=== PATIENT | female | born 1995 | race Caucasian/White ===

== ENCOUNTER 2018-02-09 11:55 | Emergency (ER) | payer MEDICAID ==
[~2018-02-09] VITALS: Ht 157.5 cm; Wt 73.8 kg
[~2018-02-09 11:55] MED LIST: CEPH-571 PO; CLIN-79 PO; CLIN-80 PO; HYDR-565 PO; IBUP-1985 PO; OMEP20CA4 PO; ONDA4TAB6 PO
[2018-02-09 12:50] LABS: BASOPHILS % (AUTO) 0.3 % (0-1); EOSINOPHILS # (AUTO) 0.1 X10'3 (0-0.9); EOSINOPHILS % (AUTO) 1.6 % (0-6); HEMATOCRIT 41.5 % (35.0-45.0); HEMOGLOBIN 14.3 g/dl (12.0-16.0); LYMPHOCYTES # (AUTO) 1.6 X10'3 (1.1-4.8); LYMPHOCYTES % (AUTO) 27.6 % (21-51); MEAN CORPUSCULAR HEMOGLOBIN 31.1 PG (27.0-31.0); MEAN CORPUSCULAR HGB CONC 34.5 % (33.0-36.5); MEAN CORPUSCULAR VOLUME 90.2 FL (78-98); MEAN PLATELET VOLUME 7.4 FL (7.4-10.4); MONOCYTES # (AUTO) 0.5 X10'3 (0-0.9); NEUTROPHILS # (AUTO) 3.6 X10'3 (1.8-7.7); NEUTROPHILS % (AUTO) 61.5 % (42-75); PLATELET COUNT 271 X10'3 (140-440); RED BLOOD COUNT 4.61 X10'6 (4.20-5.60); RED CELL DISTRIBUTION WIDTH 12.1 % (11.5-14.5); WHITE BLOOD COUNT 5.9 X10'3 (4.5-11.0)
[2018-02-09 13:03] LABS: D-DIMER 0.56 MG/L FEU (0-0.50)
[2018-02-09 13:04] LABS: ALANINE AMINOTRANSFERASE 44 U/L (12-78); ALBUMIN 3.8 G/DL (3.4-5.0); ALKALINE PHOSPHATASE 101 IU/L (46-116); ANION GAP 9 (8-16); ASPARTATE AMINO TRANSFERASE 35 U/L (10-37); BILIRUBIN,TOTAL 0.1 MG/DL (0.1-1.0); BLOOD UREA NITROGEN 10 MG/DL (7-18); BUN/CREATININE RATIO 12.8 (6.6-38.0); CALCIUM 9.2 MG/DL (8.5-10.1); CHLORIDE 104 MMOL/L (99-107); CREATININE 0.78 MG/DL (0.40-0.90); GLUCOSE 100 MG/DL (70-104); POTASSIUM 3.9 MMOL/L (3.5-5.1); SODIUM 141 MMOL/L (135-145); TOTAL CARBON DIOXIDE 28.2 MMOL/L (24-32); TOTAL PROTEIN 7.7 G/DL (6.4-8.2); eGFR > 90 ML/MIN
[2018-02-09 15:05] LABS: URINE HCG NEGATIVE (NEG)
[2018-02-09 15:21] LABS: URINE AMPHETAMINE SCREEN NEGATIVE (Neg); URINE BARBITUATE SCREEN NEGATIVE (Neg); URINE BENZODIAZEPINES SCREEN NEGATIVE (Neg); URINE CANNABINOID SCREEN NEGATIVE (Neg); URINE COCAINE SCREEN NEGATIVE (Neg); URINE METHADONE SCREEN NEGATIVE (Neg); URINE OPIATE SCREEN NEGATIVE (Neg); URINE PHENCYCLIDINE SCREEN NEGATIVE (Neg)
[2018-02-09] MEDS ORDERED: iohexol 350MG/ML 100ml bottle IV ONE (15:24)
[2018-02-09] MEDS ORDERED: IBUP-1984 PO (16:29)
[2018-02-09 16:30] VITALS: BP 97/76
[2018-02-09] MEDS ORDERED: GUAI10SY2 PO (16:30)
[2018-02-09] MEDS ORDERED: AZI25OT PO (16:41)
== END 2018-02-09 17:37 | disposition home or self-care (01) ==
LOC: ER 11:56
DX: J06.9 Acute upper respiratory infection, unspecified (principal); R09.1 Pleurisy; F17.200 Nicotine dependence, unspecified, uncomplicated; F12.10 Cannabis abuse, uncomplicated; Z88.2 Allergy status to sulfonamides; Z79.899 Other long term (current) drug therapy; Z56.0 Unemployment, unspecified
CPT/HCPCS: 36415; 71045; 71275; 80053; 80305; 81025; 85025; 85379; 99285; J7030; Q9967

== ENCOUNTER 2018-08-09 07:53 | Emergency (ER) | payer MEDICAID ==
[~2018-08-09] VITALS: Ht 154.9 cm; Wt 59.1 kg
[~2018-08-09 07:53] MED LIST changes: -CLIN-79 PO; -CLIN-80 PO; +CLIN150C8 PO; +CLIN300C85 PO; +HYDR-4353 PO; -HYDR-565 PO
[2018-08-09] MEDS ORDERED: acetaminophen 325mg tablet PO ONE (08:40)
[2018-08-09] MEDS ORDERED: normal saline 1000ML IV soln IV ONE (08:40)
[2018-08-09] MEDS ORDERED: diphenhydrAMINE 50 mg/ml inj IV ONE (08:40)
[2018-08-09] MEDS ORDERED: LIDOcaine 1% w/epiNEPHrine 1:200,000 30ml vial IJ ONE (09:20)
[2018-08-09] MEDS ORDERED: LORazepam 2 mg/ml vial IV ONE (09:25)
[2018-08-09 09:35] LABS: BASOPHILS % (AUTO) 0.3 % (0-1); EOSINOPHILS # (AUTO) 0.4 X10'3 (0-0.9); EOSINOPHILS % (AUTO) 2.5 % (0-6); HEMATOCRIT 42.3 % (35.0-45.0); HEMOGLOBIN 14.1 g/dl (12.0-16.0); LYMPHOCYTES # (AUTO) 0.6 X10'3 (1.1-4.8); LYMPHOCYTES % (AUTO) 4.2 % (21-51); MEAN CORPUSCULAR HEMOGLOBIN 29.8 PG (27.0-31.0); MEAN CORPUSCULAR HGB CONC 33.3 % (33.0-36.5); MEAN CORPUSCULAR VOLUME 89.4 FL (78-98); MEAN PLATELET VOLUME 7.6 FL (7.4-10.4); MONOCYTES # (AUTO) 0.3 X10'3 (0-0.9); MONOCYTES % (AUTO) 1.8 % (2-12); NEUTROPHILS # (AUTO) 13.2 X10'3 (1.8-7.7); NEUTROPHILS % (AUTO) 91.2 % (42-75); PLATELET COUNT 322 X10'3 (140-440); RED BLOOD COUNT 4.73 X10'6 (4.20-5.60); WHITE BLOOD COUNT 14.5 X10'3 (4.5-11.0)
[2018-08-09 09:48] LABS: ALANINE AMINOTRANSFERASE 31 U/L (12-78); ALBUMIN 3.6 G/DL (3.4-5.0); ALBUMIN/GLOBULIN RATIO 0.9 (1.1-1.5); ALKALINE PHOSPHATASE 95 IU/L (46-116); ANION GAP 13 (8-16); ASPARTATE AMINO TRANSFERASE 20 U/L (10-37); BILIRUBIN,TOTAL 0.5 MG/DL (0.1-1.0); BLOOD UREA NITROGEN 5 MG/DL (7-18); BUN/CREATININE RATIO 7.4 (6.6-38.0); CHLORIDE 98 MMOL/L (99-107); CREATININE 0.68 MG/DL (0.40-0.90); GLUCOSE 113 MG/DL (70-104); POTASSIUM 3.9 MMOL/L (3.5-5.1); SODIUM 135 MMOL/L (135-145); TOTAL CARBON DIOXIDE 23.9 MMOL/L (24-32); TOTAL PROTEIN 7.4 G/DL (6.4-8.2); eGFR > 90 ML/MIN
[2018-08-09] MEDS ORDERED: piperacillin/tazo 3.375gm/50ml 50 ML IV SCH (09:58)
[2018-08-09] MEDS ORDERED: iohexol 300mg/ml 100ml inj. ONE (10:16)
[2018-08-09 10:44] LABS: CLARITY,URINE CLOUDY (Clear); COLOR,URINE YELLOW (Yellow); GLUCOSE, URINE NEGATIVE (Neg); KETONES,URINE 40 mg/dl (Neg); LEUKOCYTE ESTERASE ,URINE MODERATE (Neg); NITRITES, URINE POSITIVE (Neg); OCCULT BLOOD,URINE SMALL (Neg); PROTEIN,URINE NEGATIVE (Neg); UA COLLECTION TYPE CLN CATCH MIDSTREAM; URINE HCG NEGATIVE (NEG); UROBILINOGEN,URINE 0.2 E.U/dL (0.2-1.0)
[2018-08-09 10:51] LABS: MUCUS STRANDS NONE SEEN /LPF (Neg); SQUAMOUS EPITHELIAL CELL,UR MANY /LPF (FEW)
[2018-08-09 10:52] LABS: BACTERIA,URINE 4+ /HPF (Neg); RBC,URINE 0-2 /HPF (0-2); TRANSITIONAL EPI CELLS,URINE FEW /HPF; WBC,URINE 20-30 /HPF (0-4)
[2018-08-09 10:59] LABS: URINE AMPHETAMINE SCREEN POSITIVE (Neg); URINE BARBITUATE SCREEN NEGATIVE (Neg); URINE BENZODIAZEPINES SCREEN NEGATIVE (Neg); URINE CANNABINOID SCREEN POSITIVE (Neg); URINE COCAINE SCREEN NEGATIVE (Neg); URINE METHADONE SCREEN NEGATIVE (Neg); URINE OPIATE SCREEN POSITIVE (Neg); URINE PHENCYCLIDINE SCREEN NEGATIVE (Neg)
[2018-08-09 11:57] VITALS: BP 115/89
[2018-08-09] MEDS ORDERED: DOXY100C43 PO (12:23)
[2018-08-09] MEDS ORDERED: CEPH-572 PO (12:23)
[2018-08-09] MEDS ORDERED: lactobacillus rhamnosus 10,000 MMU CELLS/CAPSULE PO SCH (20:00)
== END 2018-08-09 13:33 | disposition left against medical advice (07) ==
LOC: ER 07:56
DX: L03.114 Cellulitis of left upper limb (principal); N39.0 Urinary tract infection, site not specified; F12.90 Cannabis use, unspecified, uncomplicated; Z56.0 Unemployment, unspecified; Z88.2 Allergy status to sulfonamides
CPT/HCPCS: 36415; 71045; 80053; 80305; 81001; 81025; 83605; 84145; 85025; 87040; 93005; 96365; 96375; 99285; A6266; J1200; J2060; J2543; J3490; Q9967

== ENCOUNTER 2024-08-19 10:42 | Emergency (ER) | payer MEDICAID ==
[~2024-08-19] VITALS: Ht 154.9 cm; Wt 59.5 kg
[~2024-08-19 10:42] MED LIST changes: +CLIN-214 PO; +CLIN-97 PO; -CLIN150C8 PO; -CLIN300C85 PO; +METH-603 PO; +[UNRECOGNIZED DRUG - CODE] PO
[2024-08-19 10:59] VITALS: BP 132/101; PULSE 99; O2SAT 100
[2024-08-19] MEDS: amoxicillin 250mg capsule PO STA (11:52)
[2024-08-19] MEDS: ibuprofen tablet 400 MG TABLET PO ONE (11:52)
[2024-08-19 11:53] VITALS: RESP 16
[2024-08-19] MEDS: HYDROcodone/acetaminophen 5mg/325mg tablet PO STA (11:53)
[2024-08-19] MEDS ORDERED: HYDR-3965 PO (12:02)
[2024-08-19] MEDS ORDERED: AMOX875T10 PO (12:02)
[2024-08-19 12:22] VITALS: TEMP 97.5
== END 2024-08-19 12:25 | disposition home or self-care (01) ==
LOC: ER 10:43
DX: K04.7 Periapical abscess without sinus (principal); K08.89 Other specified disorders of teeth and supporting structures; K02.9 Dental caries, unspecified; F12.90 Cannabis use, unspecified, uncomplicated; Z88.2 Allergy status to sulfonamides; Z79.2 Long term (current) use of antibiotics; Z79.899 Other long term (current) drug therapy
CPT/HCPCS: 99284